=== PATIENT | male | born 1975 | race Caucasian/White ===

== ENCOUNTER 2023-06-03 07:35 | Emergency (ER) | payer SELFPAY ==
[2023-06-03 07:44] VITALS: BP 182/99; PULSE 74; RESP 16; TEMP 36.7; O2SAT 97; BMI 25.1
--- NOTE | 2023-06-03 07:48 | [facility].EDGENADL ---
Discharge Plan Disposition Patient Disposition: Home, Self-Care Condition: Good Prescriptions Prescriptions: New oxycodone 5 mg tablet 5 mg PO Q8H PRN (Reason: pain) Qty: 12 0RF ibuprofen 800 mg tablet 800 mg PO Q8H PRN (Reason: pain) Qty: 20 0RF amoxicillin-pot clavulanate 875-125 mg tablet 1 tab PO Q12H Qty: 20 0RF Referrals Follow up/Referrals: Provider,Referral, MD [Primary Care Provider] - See instructions Activity Restrictions/Add. Instructions Additional Instructions/Restrictions: You were evaluated in the emergency department today. Please excelsior picker your prescriptions at the pharmacy and take the full course of antibiotics as prescribed. Take the pain medication as needed. Do not drive or operate heavy machinery while taking narcotic pain medication. Follow-up with your dentist as soon as possible. Within the next 24 hours would be ideal. Return to the emergency department for any new or worsening symptoms, such as significant facial swelling, difficulty swallowing, difficulty breathing, or other concerns. Clinical Impressions Clinical Impression: Fracture of tooth, Dental caries Instructions Patient Instructions: DI for Tooth Decay, DI for Dental Pain Discharge ED Provider: Yola Mccann General Adult HPI General Chief complaint: Dental/Oral Stated complaint: dental pain Time Seen by Provider: 06/03/23 07:46 History of Present Illness HPI narrative: This patient is a 48-year-old male resenting to the emergency department for evaluation with concern for right-sided jaw pain radiating to his ear and neck. He states that he had 2 teeth pulled on the right side approximately 2 to 3 weeks ago at his dentist in [place], where he is visiting from. He states that after this, he had a tooth that broke off over on the right side. He has not yet been able to see a dentist for this. He has had progressively worsening shooting pain up into his right jaw, to the right side of his forehead, and down his right neck. He denies any fevers, chills, headaches, vision changes, facial swelling, oral swelling, difficulty breathing, nausea, or vomiting. His pain is exacerbated by anything touching his broken tooth. He has been taking ibuprofen at home without good improvement. His plan is to follow-up with his dentist eye, soon as possible. Related Data Previous Rx's Medication Instructions Recorded amoxicillin 875 mg-potassium 1 tab PO Q12H #20 tabs 06/03/23 clavulanate 125 mg tablet ibuprofen 800 mg tablet 800 mg PO Q8H PRN pain #20 tabs 06/03/23 oxycodone 5 mg tablet 5 mg PO Q8H PRN pain #12 tabs 06/03/23 Allergies Allergy/AdvReac Type Severity Reaction Status Date / Time No Known Allergies Allergy Verified 06/03/23 07:50 [facility] Disclaimer: The information contained in this section may have been updated after the patient was seen, as this information can be updated by other users. Social History Smoking Status: Current every day smoker alcohol intake: never current occupational status: employed Travel in the last 8 weeks: None ROS Obtained: Yes All systems reviewed & no additional complaints except as documented Physical Exam General General appearance: alert and in no apparent distress Head Head exam: atraumatic, normocephalic and other (No significant facial swelling, redness, or warmth) Eye Eye exam: Present normal appearance, PERRL and EOMI ENT ENT exam: Present mucous membranes moist, TM's normal bilaterally, normal external ear exam and other (Poor dentition with an Schneider 2 fracture of tooth 32. No significant oral swelling. No palpable abscesses.) Neck Neck exam: Present normal inspection, full ROM and trachea midline; Absent tenderness Chest Chest inspection: Present normal inspection and symmetric chest wall rise; Absent tenderness Respiratory Respiratory exam: Present normal lung sounds bilaterally
[2023-06-03 08:47] VITALS: BP 180/99; PULSE 78; RESP 16; TEMP 36.7
== END 2023-06-03 08:48 | disposition home or self-care (01) ==
PROVIDERS: Emergency Provider Emergency Medicine
DX: R68.84 Jaw pain (principal); S02.5XXA Fracture of tooth (traumatic), initial encounter for closed fracture; F17.200 Nicotine dependence, unspecified, uncomplicated; X58.XXXA Exposure to other specified factors, initial encounter
CPT/HCPCS: 96372; 99283